=== PATIENT | female | born 1960 | race African-American/Black ===

== ENCOUNTER 2022-12-31 08:07 | Inpatient (IN) | payer MEDICAID, OTHER ==
[~2022-12-31] VITALS: Ht 167.6 cm; Wt 51.7 kg
[2022-12-31] VITALS (8 sets, daily range): BP systolic 97–148; BP diastolic 63–88
[~2022-12-31 08:07] MED LIST: HYDR12.529 PO; METH500T PO
[2022-12-31] MEDS ORDERED: IPRATROPIUM/ALBUTEROL 0.5-3(2.5)MG/3ML NEB HHN ONE (08:30)
[2022-12-31] MEDS ORDERED: PREDNISONE 20MG TABLET PO ONE (08:30)
[2022-12-31] MEDS ORDERED: AZITHROMYCIN 500 MG TABLET PO ONE (10:00)
[2022-12-31] MEDS ORDERED: AMOXICILLIN/POTASSIUM CLAVULANATE 875/125MG TAB PO ONE (10:00)
[2022-12-31] MEDS ORDERED: IPRATROPIUM/ALBUTEROL 0.5-3(2.5)MG/3ML NEB HHN NR (10:17)
[2022-12-31] MEDS ORDERED: AMOX1TAB16 MT ×2 (11:52)
[2022-12-31] MEDS ORDERED: AZIT250T12 MT ×2 (11:52)
[2022-12-31] MEDS ORDERED: ALBU6.7H3 INH (11:52)
[2022-12-31] MEDS ORDERED: P50 MT ×2 (11:52)
[2022-12-31 13:47] LABS: HEMATOCRIT. 30.9 % (36.0-48.0); HEMOGLOBIN. 10.3 g/dL (12.0-16.0); MEAN CORPUSCULAR HEMOGLOBIN 30.6 pg (28.0-32.0); MEAN CORPUSCULAR VOLUME 91.4 fL (81.0-99.0); PLATELET 503 x1000/uL (130-400); RED BLOOD CELL COUNT 3.38 mill/uL (4.2-5.4)
[2022-12-31 13:51] LABS: INR 1.2; PROTHROMBIN TIME 12.7 sec (9.6-11.0)
[2022-12-31 13:57] LABS: CHLORIDE 96 mEq/L (98-107)
[2022-12-31] MEDS ORDERED: POTASSIUM CHLORIDE 20MEQ TABLET SR PO ONE (14:45)
[2022-12-31] MEDS ORDERED: VANCOMYCIN 1G PREMIX 200 ML IV SCH (14:45)
[2022-12-31] MEDS ORDERED: PIPERACILLIN/TAZOBACTAM 3.375GM/50ML PREMIX IV ONE (14:45)
[2022-12-31] MEDS ORDERED: HEPARIN 25,000 UNITS PREMIX 250 ML IV PRN (14:45)
[2022-12-31] MEDS ORDERED: KCL 20MEQ/100ML PREMIX 100 ML IV ONE (14:45)
[2022-12-31] MEDS ORDERED: ASPIRIN 325MG EC TABLET PO ONE (14:45)
[2022-12-31] MEDS ORDERED: HEPARIN 5000 UNITS/ML VIAL IV PRN ×2 (14:45)
[2022-12-31] MEDS ORDERED: FUROSEMIDE 20MG/2ML VIAL IVP ONE (14:45)
[2022-12-31] MEDS ORDERED: HEPARIN 5000 UNITS/ML VIAL IV SCH (14:45)
[2022-12-31] MEDS ORDERED: PIPERACILLIN/TAZ 3.375G PREMIX 50 ML IV SCH (15:00)
[2022-12-31] MEDS ORDERED: MAGNESIUM/ALUMINUM HYDROXIDE/SIMETHICONE 30ML UDC PO PRN (15:30)
[2022-12-31] MEDS ORDERED: LORAZEPAM 1MG TABLET PO PRN (15:30)
[2022-12-31] MEDS ORDERED: ACETAMINOPHEN 325MG TABLET PO PRN (15:30)
[2022-12-31] MEDS ORDERED: CLONIDINE 0.1MG TABLET PO PRN (15:30)
[2022-12-31] MEDS ORDERED: ENOXAPARIN 40MG/0.4ML SYR SUBCUT SCH (15:30)
[2022-12-31] MEDS ORDERED: ONDANSETRON HCL 4MG/2ML INJ IV PRN (15:30)
[2022-12-31] MEDS ORDERED: DIPHENHYDRAMINE 50MG/ML VIAL IV PRN (15:30)
[2022-12-31] MEDS ORDERED: IPRATROPIUM/ALBUTEROL 0.5-3(2.5)MG/3ML NEB HHN PRN (15:30)
[2022-12-31] MEDS ORDERED: POTASSIUM CHLORIDE 20MEQ TABLET SR PO NR (15:30)
[2022-12-31] MEDS ORDERED: KCL 20MEQ/100ML PREMIX 100 ML IV NR (16:00)
[2022-12-31] MEDS: ACETAMINOPHEN 325MG TABLET PO PRN (16:10)
[2022-12-31] MEDS ORDERED: HEPARIN BOLUS PRN aPTT 30-44 IV (16:15)
[2022-12-31] MEDS ORDERED: HEPARIN 25,000 UNITS PREMIX 250 ML IV SCH (16:15)
[2022-12-31] MEDS ORDERED: HEPARIN BOLUS PRN aPTT <30 IV (16:15)
[2022-12-31] MEDS ORDERED: HEPARIN 60 UNITS/KG BOLUS IV SCH (16:15)
[2022-12-31] MEDS ORDERED: LEVOFLOXACIN 500MG PREMIX 100 ML IV SCH (16:30)
[2022-12-31 17:10] LABS: BG BASE EXCESS -6.7 mmol/L (-2.0-2.0); BG CARBOXYHEMOGLOBIN 0.5 % (0.5-1.5); BG DEOXYHEMOGLOBIN 7.8 % (0.0-5.0); BG HCO3 ACT 16.4 mmol/L (22.0-26.0); BG METHEMOGLOBIN 0.3 % (0.0-1.5); BG OXYGEN SATURATION 92.1 % (92.0-98.5); BG OXYHEMOGLOBIN 91.4 % (94.0-97.0); BG PCO2 25.8 mmHg (35.0-45.0); BG PO2 69.3 mmHg (75.0-100.0); BG SAMPLE SITE RIGHT RADIAL; BG TOTAL HEMOGLOBIN 11.4 g/dL (12.0-18.0); BG VENT MODE ROOM AIR
[2022-12-31] MEDS ORDERED: MAGNESIUM 2 G PREMIX 50 ML IV NR (18:00)
[2022-12-31 18:02] LABS: PLATELET ESTIMATE INCREASED
[2022-12-31] MEDS ORDERED: ZOLPIDEM TARTRATE 5MG TABLET PO PRN (21:00)
[2022-12-31] MEDS: IPRATROPIUM/ALBUTEROL 0.5-3(2.5)MG/3ML NEB HHN SCH (21:04)
[2022-12-31] MEDS: METHYLPREDNISOLONE SOD SUCC 125 MG/2 ML VIAL IV SCH (21:57)
[2022-12-31] MEDS: SODIUM CHLORIDE 0.9% INJ 3ML FLUSH IVF SCH (21:58)
[2023-01-01] VITALS (22 sets, daily range): BP systolic 90–129; BP diastolic 54–76
[2023-01-01] MEDS: IPRATROPIUM/ALBUTEROL 0.5-3(2.5)MG/3ML NEB HHN SCH ×4 (02:29→21:10)
[2023-01-01] MEDS: SODIUM CHLORIDE 0.9% INJ 3ML FLUSH IVF SCH ×3 (06:00→21:34)
[2023-01-01] MEDS: GUAIFENESIN 200MG/10ML SUGAR FREE UDC PO PRN (06:01)
[2023-01-01] MEDS: METHYLPREDNISOLONE SOD SUCC 125 MG/2 ML VIAL IV SCH ×3 (06:01→21:34)
[2023-01-01 06:25] LABS: HEMATOCRIT. 29.4 % (36.0-48.0); HEMOGLOBIN. 9.9 g/dL (12.0-16.0); MEAN CORPUSCULAR HEMOGLOBIN 30.6 pg (28.0-32.0); MEAN CORPUSCULAR VOLUME 91.2 fL (81.0-99.0); MEAN PLATELET VOLUME 6.7 fl (7.4-10.4); PLATELET 421 x1000/uL (130-400); RED BLOOD CELL COUNT 3.22 mill/uL (4.2-5.4)
[2023-01-01 06:37] LABS: CHLORIDE 106 mEq/L (98-107)
[2023-01-01 06:54] LABS: PHOSPHORUS 3.2 mg/dL (2.5-4.9)
[2023-01-01 08:06] LABS: PLATELET ESTIMATE SLIGHTLY INCREASED
[2023-01-01] MEDS ORDERED: AZITHROMYCIN 250 MG in DEXT 5% WATER 250 ML IV SCH (08:30)
[2023-01-01] MEDS: CEFTRIAXONE 1,000 MG in DEXTROSE 5% WATER 50 ML IV SCH (09:30)
[2023-01-01] MEDS ORDERED: AZITHROMYCIN 500 MG in DEXT 5% WATER 250 ML IV SCH (10:00)
[2023-01-01 10:42] LABS: *AMPHETAMINES SCREEN URINE NEGATIVE (NEGATIVE); *BARBITURATES SCREEN URINE NEGATIVE (NEGATIVE); *BENZODIAZEPINES SCREEN URINE NEGATIVE (NEGATIVE); *COCAINE SCREEN URINE PRESUMTIVE POSITIVE (NEGATIVE); CANNABINOID URINE SCREEN NEGATIVE (NEGATIVE); METHADONE URINE SCREEN NEGATIVE (NEGATIVE); OPIATES URINE SCREEN NEGATIVE (NEGATIVE); PHENCYCLIDINE URINE SCREEN NEGATIVE (NEGATIVE)
[2023-01-01] MEDS ORDERED: LIDOCAINE HCL/PF 2% 20MG/ML 5 ML/VIAL ONE (11:00)
[2023-01-01] MEDS ORDERED: HEPARIN 1000 UNITS/ML 10ML ONE (11:01)
[2023-01-01] MEDS ORDERED: IODIXANOL 320MG/ML 100 ML BOTTLE IV ONE (11:01)
[2023-01-01] MEDS ORDERED: FENTANYL CITRATE/PF 50MCG/ML 2ML VIAL ONE (11:17)
[2023-01-01] MEDS ORDERED: MIDAZOLAM HCL 2 MG/2 ML VIAL ONE (11:17)
[2023-01-01] MEDS: GUAIFENESIN 600MG ER TABLET PO SCH ×2 (13:08→21:34)
[2023-01-02] VITALS (21 sets, daily range): BP systolic 109–151; BP diastolic 63–96
[2023-01-02] MEDS: IPRATROPIUM/ALBUTEROL 0.5-3(2.5)MG/3ML NEB HHN SCH ×4 (01:19→21:45)
[2023-01-02] MEDS: GUAIFENESIN 200MG/10ML SUGAR FREE UDC PO PRN ×2 (04:41→21:24)
[2023-01-02 05:52] LABS: HEMATOCRIT. 27.1 % (36.0-48.0); HEMOGLOBIN. 8.9 g/dL (12.0-16.0); MEAN CORPUSCULAR HEMOGLOBIN 30.7 pg (28.0-32.0); MEAN CORPUSCULAR VOLUME 92.9 fL (81.0-99.0); MEAN PLATELET VOLUME 7.4 fl (7.4-10.4); PLATELET 360 x1000/uL (130-400); RED BLOOD CELL COUNT 2.91 mill/uL (4.2-5.4); RED CELL DISTRIBUTION WIDTH 15.9 % (11.6-14.6)
[2023-01-02 06:01] LABS: CHLORIDE 107 mEq/L (98-107)
[2023-01-02] MEDS: METHYLPREDNISOLONE SOD SUCC 125 MG/2 ML VIAL IV SCH ×3 (06:09→21:24)
[2023-01-02] MEDS: SODIUM CHLORIDE 0.9% INJ 3ML FLUSH IVF SCH ×3 (06:10→21:24)
[2023-01-02] MEDS ORDERED: POTASSIUM CHLORIDE 20MEQ/PACKET PO SCH (08:15)
[2023-01-02] MEDS: CEFTRIAXONE 1,000 MG in DEXTROSE 5% WATER 50 ML IV SCH (08:37)
[2023-01-02] MEDS: GUAIFENESIN 600MG ER TABLET PO SCH ×2 (08:37→21:24)
[2023-01-02] MEDS: POTASSIUM CHLORIDE 20MEQ TABLET SR PO SCH ×2 (08:39→17:00)
[2023-01-02 09:05] LABS: PLATELET ESTIMATE NORMAL
[2023-01-02] MEDS: ACETAMINOPHEN 325MG TABLET PO PRN ×2 (15:52→21:35)
[2023-01-02] MEDS ORDERED: IBUPROFEN 600MG TABLET PO PRN (16:00)
[2023-01-03] VITALS (13 sets, daily range): BP systolic 123–154; BP diastolic 66–86
[2023-01-03] MEDS: IPRATROPIUM/ALBUTEROL 0.5-3(2.5)MG/3ML NEB HHN SCH ×4 (01:18→20:18)
[2023-01-03] MEDS: METHYLPREDNISOLONE SOD SUCC 125 MG/2 ML VIAL IV SCH (06:31)
[2023-01-03] MEDS: SODIUM CHLORIDE 0.9% INJ 3ML FLUSH IVF SCH ×3 (06:32→20:44)
[2023-01-03 07:05] LABS: HEMATOCRIT. 27.8 % (36.0-48.0); HEMOGLOBIN. 9.2 g/dL (12.0-16.0); MEAN CORPUSCULAR HEMOGLOBIN 30.6 pg (28.0-32.0); MEAN CORPUSCULAR VOLUME 92.9 fL (81.0-99.0); MEAN PLATELET VOLUME 7.9 fl (7.4-10.4); PLATELET 349 x1000/uL (130-400); RED BLOOD CELL COUNT 2.99 mill/uL (4.2-5.4); RED CELL DISTRIBUTION WIDTH 15.5 % (11.6-14.6)
[2023-01-03 07:49] LABS: CHLORIDE 109 mEq/L (98-107)
[2023-01-03] MEDS: GUAIFENESIN 600MG ER TABLET PO SCH ×2 (09:29→20:43)
[2023-01-03] MEDS: POTASSIUM CHLORIDE 20MEQ TABLET SR PO SCH (09:30)
[2023-01-03] MEDS: CEFTRIAXONE 1,000 MG in DEXTROSE 5% WATER 50 ML IV SCH (09:30)
[2023-01-03] MEDS ORDERED: SODIUM POLYSTYRENE SULFONATE 15 G/60 ML BOT PO NR (12:15)
[2023-01-03] MEDS: DILTIAZEM HCL 30MG TABLET PO SCH ×2 (12:45→17:20)
[2023-01-03] MEDS: GUAIFENESIN 200MG/10ML SUGAR FREE UDC PO PRN ×2 (13:11→23:58)
[2023-01-03] MEDS ORDERED: IOHEXOL-350 100 ML BOTTLE ONE (23:08)
[2023-01-03] MEDS: ACETAMINOPHEN 325MG TABLET PO PRN (23:58)
[2023-01-04] VITALS (9 sets, daily range): BP systolic 120–149; BP diastolic 58–84
[2023-01-04] MEDS: IPRATROPIUM/ALBUTEROL 0.5-3(2.5)MG/3ML NEB HHN SCH ×3 (01:28→14:17)
[2023-01-04] MEDS: DILTIAZEM HCL 30MG TABLET PO SCH ×3 (06:07→11:11)
[2023-01-04] MEDS: SODIUM CHLORIDE 0.9% INJ 3ML FLUSH IVF SCH ×2 (06:07→14:00)
[2023-01-04] MEDS: GUAIFENESIN 200MG/10ML SUGAR FREE UDC PO PRN ×2 (06:27→08:53)
[2023-01-04 07:07] LABS: BASOPHILS % 0.1 % (0.0-2.0); HEMATOCRIT. 27.5 % (36.0-48.0); HEMOGLOBIN. 9.1 g/dL (12.0-16.0); MEAN CORPUSCULAR HEMOGLOBIN 30.7 pg (28.0-32.0); MEAN CORPUSCULAR VOLUME 92.9 fL (81.0-99.0); MEAN PLATELET VOLUME 7.9 fl (7.4-10.4); MONOCYTES % 6.7 % (2.0-8.0); NEUTROPHILS % 82.2 % (40.0-76.0); PLATELET 371 x1000/uL (130-400); RED BLOOD CELL COUNT 2.96 mill/uL (4.2-5.4); RED CELL DISTRIBUTION WIDTH 15.4 % (11.6-14.6)
[2023-01-04 07:13] LABS: CHLORIDE 110 mEq/L (98-107)
[2023-01-04 07:51] LABS: PLATELET ESTIMATE NORMAL
[2023-01-04] MEDS: GUAIFENESIN 600MG ER TABLET PO SCH (08:53)
[2023-01-04] MEDS: CEFTRIAXONE 1,000 MG in DEXTROSE 5% WATER 50 ML IV SCH (08:55)
[2023-01-04] MEDS ORDERED: PREDNISONE 20MG TABLET PO SCH (09:00)
[2023-01-04] MEDS ORDERED: MAGNESIUM OXIDE 400MG TABLET PO SCH (10:00)
== END 2023-01-04 17:00 | disposition home or self-care (01) | DRG 720 ==
LOC: ER 08:36 → 7EST 13:48 → CVICU 17:21 → 5EST 01-02 19:01
PROVIDERS: ADMIT Internal Medicine; ATTEND Internal Medicine
PROC: 4A023N7 Measurement of Cardiac Sampling and Pressure, Left Heart, Percutaneous Approach (ICD-10-PCS; principal; 2023-01-01)
PROC: B2111ZZ Fluoroscopy of Multiple Coronary Arteries using Low Osmolar Contrast (ICD-10-PCS; 2023-01-01)
PROC: B2151ZZ Fluoroscopy of Left Heart using Low Osmolar Contrast (ICD-10-PCS; 2023-01-01)
DX: A41.9 Sepsis, unspecified organism (principal); J96.01 Acute respiratory failure with hypoxia; I46.9 Cardiac arrest, cause unspecified; I21.4 Non-ST elevation (NSTEMI) myocardial infarction; E44.1 Mild protein-calorie malnutrition; J18.9 Pneumonia, unspecified organism; E87.1 Hypo-osmolality and hyponatremia; J44.0 Chronic obstructive pulmonary disease with (acute) lower respiratory infection; E87.20 Acidosis, unspecified; I10 Essential (primary) hypertension; D64.9 Anemia, unspecified; E87.6 Hypokalemia; I49.01 Ventricular fibrillation; I49.3 Ventricular premature depolarization; J44.1 Chronic obstructive pulmonary disease with (acute) exacerbation; Z20.822 Contact with and (suspected) exposure to COVID-19; F14.10 Cocaine abuse, uncomplicated; E87.5 Hyperkalemia; I08.1 Rheumatic disorders of both mitral and tricuspid valves; Z79.899 Other long term (current) drug therapy; Z80.9 Family history of malignant neoplasm, unspecified; Z87.891 Personal history of nicotine dependence; I47.21 Torsades de pointes
CPT/HCPCS: 36415; 36600; 71045; 71275; 80048; 80053; 80305; 82375; 82805; 82962; 83605; 83735; 83880; 84100; 84145; 84443; 84484; 85025; 85379; 87070; 87426; 93005; 93306; 93458; 93970; 94640; 99291; C1769; C1893; C9803; J0456; J0696; J1644; J1940; J1956; J2250; J2930; J3010; J3475; J3480; J3490; J7060; J7512; Q9967